=== PATIENT | female | born 1970 | race Caucasian/White ===

== ENCOUNTER 2017-01-03 18:37 | Emergency (ER) | payer BC ==
[~2017-01-03] VITALS: Ht 162.6 cm; Wt 78.2 kg
[2017-01-03 18:42] VITALS: TEMP 36.7; Ht 162.6 cm; Wt 78.2 kg
[2017-01-03] MEDS ORDERED: KETOROLAC TROMETHAMINE 60 MG/2 ML VIAL IM STA (19:31)
[2017-01-03] MEDS ORDERED: OXYCODONE HCL IR 5 MG TAB (IMMEDIATE RELEASE) PO STA (19:31)
--- NOTE | 2017-01-03 20:18 | DIAGNOSTIC IMAGING REPORT ---
LUMBAR SPINE 5 VIEWS CLINICAL HISTORY: Low back pain radiating to the left lower extremity . FINDINGS: 5 views of the lumbar spine are obtained. No prior studies are available for comparison at the time of dictation. The skeletal structures are well mineralized. There is no radiographic evidence of fracture or malalignment. Vertebral body height and alignment are maintained. The transverse and spinous processes are intact. There is no evidence of spondylolysis. Tiny anterior osteophytes are seen throughout. Mild disc space narrowing seen at L5-S1. The remaining intervertebral disc spaces are well-maintained. Mild facet arthropathy is noted in the lower lumbar spine. The visualized bony pelvis appears intact. There is a nonobstructed abdominal bowel gas pattern. Pelvic phleboliths are observed. IMPRESSION: No acute bony abnormality is seen involving the lumbosacral spine. Electronically signed by: Christiano Palafox M.D. 01/03/2017 8:17 PM Dictated Date/Time: 01/03/2017 8:15 PM
[2017-01-03] MEDS ORDERED: OXYC1TAB3 PO (20:34)
[2017-01-03] MEDS ORDERED: OXYCODONE IR HOME PACK PO ONE (20:45)
[2017-01-03 20:49] VITALS: BP 158/84; PULSE 75; O2SAT 99
[2017-01-03] MEDS ORDERED: IBUP-1050 PO (20:49)
[2017-01-03] MEDS ORDERED: EFFSR75 PO (20:49)
[2017-01-03] MEDS ORDERED: OMEP40CA41 PO (20:49)
[2017-01-03] MEDS ORDERED: VENL150C56 PO (20:49)
--- NOTE | 2017-01-03 22:21 | EMERGENCY ROOM VISIT NOTE ---
History Report prepared by Mikayla: Gunnar Capellan Under the Supervision of: Dr. Gilberto Lind M.D. First contact with patient: 19:25 Chief Complaint: BACK PAIN Stated Complaint: LOWER BACK PAIN,SHOOTING DOWN LF LEG History of Present Illness The patient is a 46 year old female who presents to the Emergency Room with complaints of worsening left sided back pain that started a week ago. She was driven here by her mother. She says that she is visiting from [place] to see family. The patient states that her back pain radiates down her left leg and into the left side of her groin. The patient says that it hurts to move. She states that she has had a numbness sensation in her left thigh, but no numbness in her vaginal area. She says that she was seen at Urgent Care 3 days ago, and was put on Prednisone and a muscle relaxer. The patient adds that she has been taking Naproxen as well, but did not take any today. She says that she last had back pain like this a year ago. She denies any weakness, or loss of control of her bladder or bowels. The patient states that she has no medical conditions. She denies any chance of . Source of History: patient Onset: A week ago Position: back (left sided) Timing: worsening Modifying Factors (Worsening): movement Associated Symptoms: + numbness (in left thigh, denies vaginal area numbness ), No urinary symptoms, No weakness Note: Associated symptoms: Pain radiating down left leg and into left side of groin. Denies loss of control of bowels. Review of Systems See HPI for pertinent positives & negatives. A total of 10 systems reviewed and were otherwise negative. Past Medical & Surgical Medical Problems: (1) Back pain (2) Numbness in feet Family History No pertinent family history Social History Smoking Status: Current Every Day Smoker Alcohol Use: occasionally Marital Status: Housing Status: lives with family Occupation Status: unemployed Current/Historical Medications Scheduled Omeprazole (Prilosec), 40 MG PO DAILY Venlafaxine Hcl (Effexor Extended Rel), 75 MG PO DAILY Venlafaxine Hcl (Effexor Extended Rel), 150 MG PO DAILY Scheduled PRN Ibuprofen (Advil), 400 MG PO UD PRN for Pain Oxycodone Ir (Roxicodone Ir), 5 MG PO Q4H PRN for Pain Allergies Coded Allergies: Sulfa Antibiotics (Verified Allergy, Unknown, HIVES, 01/03/17) Physical Exam Vital Signs Date Time Temp Pulse Resp B/P (MAP) Pulse Ox O2 Delivery O2 Flow Rate FiO2 01/03/17 20:49 75 18 158/84 99 Room Air 01/03/17 19:42 62 18 107/64 99 Room Air 01/03/17 18:42 36.7 99 16 161/74 99 Room Air Physical Exam Constitutional: Vital signs reviewed. Eyes: Pupils are equal round reactive to light. Conjunctiva are noninjected. ENT: Pharynx is clear without erythema or exudate. Mucous membranes are moist. Neck supple without meningeal signs. Respiratory: Clear to auscultation bilaterally. Breath sounds are equal bilaterally. Cardiovascular: Regular rate and rhythm. No rubs or gallops. GI: Soft, nondistended and nontender. Bowel sounds are present. Musculoskeletal: No peripheral edema. No lower extremity tenderness. Integumentary: No cyanosis. Neurological: The patient is awake and alert. Motor and sensation intact in lower extremities. Normal gait. DTRs normal bilaterally. Positive straight leg raise, left side at 25 degrees. Psychiatric: Normal affect. Medical Decision & Procedures ER Provider Diagnostic Interpretation: X-ray results as stated below per interpretation by me and the radiologist: LUMBAR SPINE 5 VIEWS CLINICAL HISTORY: Low back pain radiating to the left lower extremity . FINDINGS: 5 views of the lumbar spine are obtained. No prior studies are available for comparison at the time of dictation. The skeletal structures are well mineralized. There is no radiographic evidence of fracture or malalignment. Vertebral body height and alignment are maintained. The transverse and spinous processes are intact. There is no evidence of spondylolysis. Tiny anterior osteophytes are seen throughout. Mild disc space narrowing seen at L5-S1. The remaining intervertebral disc spaces are well-maintained. Mild facet arthropathy is noted in the lower lumbar spine. The visualized bony pelvis appears intact. There is a nonobstructed abdominal bowel gas pattern. Pelvic phleboliths are observed. IMPRESSION: No acute bony abnormality is seen involving the lumbosacral spine. Electronically signed by: Christiano Palafox M.D. 01/03/2017 8:17 PM Dictated Date/Time: 01/03/2017 8:15 PM Medications Administered Medications (Trade) Dose Ordered Sig/Vj Route Start Time Stop Time Status Last Admin Dose Admin Oxycodone HCl (Roxicodone Immediate Rel Tab) 5 mg NOW STAT PO 01/03/17 19:31 01/03/17 19:32 DC 01/03/17 19:40 5 MG Ketorolac Tromethamine (Toradol Inj) 30 mg NOW STAT IM 01/03/17 19:31 01/03/17 19:32 DC 01/03/17 19:40 30 MG Oxycodone HCl (Roxicodone Immediate Rel 5MG Home Pack) 1 homepack UD ONCE PO 01/03/17 20:45 01/03/17 20:46 DC 01/03/17 20:48 1 HOMEPACK ED Course 1925: The patient was evaluated in room C12B. A complete history and physical exam was performed. 1930: Ordered Toradol Inj 30 mg IM, Roxicodone Immediate Rel Tab 5 mg PO. 2031: I reevaluated the patient and she says she is feeling somewhat better. The patient verbally expressed understanding and agreement of the treatment plan. The patient will be discharged. 2044: Ordered Roxicodone Immediate Rel 5MG Home Pack 1 homepack PO. Medical Decision This is a 46-year-old female presents with back pain rating down her leg. Differential diagnosis includes lumbar disc disease, radiculopathy, strain, spinal stenosis, kidney stone. I did perform a limited focused review of portions of the patient's old chart on the electronic medical record. The patient has had no prior visits. I did evaluate the patient as noted above. Patient is presenting with left- sided back pain radiating into her leg and groin. Her symptoms seem consistent with lumbar radiculopathy and intervertebral disc disease. She also has some paresthesias to her left thigh. Currently she is neurologically intact. She has a normal gait and no deficits in strength or sensation. No saddle anesthesia. Normal DTRs. I did order and personally review the patient's lumbar spine x-rays as described above. There is no evidence of fracture or acute abnormality. No kidney stones are noted. I did treat patient with OxyIR and Toradol IM. I did reassess the patient. She is feeling somewhat better. I did recommend close follow up with her doctor for further evaluation and possible physical therapy. She was given return instructions as outlined below. She was given a short prescription for OxyIR and given precautions regarding this medication. [place] Drug Monitoring Program Search Results: patient reviewed within database Drug Monitoring Findings: No matching patients. Medication Reconcilliation Current Medication List: was personally reviewed by me No medications on list. Blood Pressure Screening Patient's blood pressure: Elevated blood pressure Blood pressure disposition: Referred to PCP Impression Primary Impression: Lumbar radiculopathy Additional Impression: Paresthesias Scribe Attestation The scribe's documentation has been prepared under my direct and personally reviewed by me in its entirety. I confirm that the note above accurately reflects all work, treatment, procedures, and medical decision making performed by me. Departure Information Dispostion Home / Self-Care Prescriptions Oxycodone Ir (Roxicodone Ir) 5 Mg Tab 5 MG PO Q4H Y for Pain, #14 TAB Prov: Gilberto Lind M.D. 01/03/17 Referrals No Doctor, Assigned (PCP) Forms HOME CARE DOCUMENTATION FORM, IMPORTANT VISIT INFORMATION Patient Instructions Back Pain - [facility], [facility] Additional Instructions You have been examined and treated today on an emergency basis only. This is not a substitute for, or an effort to provide, complete comprehensive medical care. It is impossible to recognize and treat all injuries or illnesses in a single emergency department visit. It is therefore important that you follow up closely with your physician. Call as soon as possible for an appointment. Return for worsening symptoms or if you develop fever, vomiting, abdominal pain , loss of control of your bowel or bladder, numbness or weakness to your legs, numbness to your private area, difficulty urinating, or any other concerning symptoms. Problem Qualifiers
== END 2017-01-03 20:52 | disposition home or self-care (01) ==
LOC: C.EDB 18:39 → C.EDC 20:52
DX: M54.16 Radiculopathy, lumbar region (principal); R20.9 Unspecified disturbances of skin sensation; F17.200 Nicotine dependence, unspecified, uncomplicated